=== PATIENT | male | born 1960 | race Caucasian/White ===

== ENCOUNTER 2016-09-22 08:35 | Emergency (ER) | payer OTHER ==
[2016-09-22 09:06] LABS: Hematocrit 40.4 % (42.0-52.0); Hemoglobin 13.7 gm/dL (13.5-18.0); Mean Cell Volume 103.9 fl (78-100); Mean Corpuscular Hemoglobin 35.2 pg (27-31); Mean Corpuscular Hgb Conc 33.9 g/dl (32-36); Mean Platelet Volume 10.7 fl (6.0-9.5); Neutrophil # 2.6 K/mm3 (1.3-6.0); Neutrophil % 54.8 % (42-75.0); Platelet Count 107 K/mm3 (150-450); Red Blood Count 3.89 M/mm3 (4.7-6.0); Red Cell Distribution Width 13.6 % (11.5-14.0); Urine Bilirubin Negative (NEGATIVE); Urine Blood Negative /ul (NEGATIVE); Urine Ketone Negative (NEGATIVE); Urine Nitrite Negative (NEGATIVE); Urine Protein Negative (NEGATIVE); Urine Specific Gravity >=1.030 SP.GR. (1.005-1.030); Urine Urobilinogen Normal (NORMAL); White Blood Count 4.8 K/mm3 (4.0-10.5)
[2016-09-22 09:11] LABS: Urine Appearance Clear; Urine Color Dark Yellow
[2016-09-22 09:14] LABS: Urine Bacteria 1+; Urine Mucus Few - 1+; Urine RBC TRACE /hpf (0-5); Urine WBC TRACE /hpf (0-5)
[2016-09-22 09:17] LABS: Anion Gap 9.5 mmol/L (6.8-13.8); BUN/Creatinine Ratio 20.5 (9.0-21.6); Bilirubin Direct 0.5 mg/dL (0.0-0.3); Bilirubin, Total 1.6 mg/dL (0.0-1.1); Bilirubin,Indirect 1.1 mg/dL (0.1-0.7); Calcium * 8.7 mg/dL (7.9-10.9); Carbon Dioxide 28.7 mmol/L (24-32.6); Estimated Creat Clear 115.3; Potassium 4.2 mmol/L (3.4-4.6); Total Protein 7.1 gm/dL (6.2-8.2)
[2016-09-22 09:35] VITALS: BP 154/88
[2016-09-22] MEDS ORDERED: KETOROLAC TROMETHAMINE 60 MG/2 ML VIAL IM ONE ×2 (09:39→09:44)
--- NOTE | 2016-09-22 09:47 | ERNOTE ---
Back Pain ER HPI Time Seen by Provider: 09/22/16 09:24 Source: patient Exam Limitations: no limitations Immunizations: IMMUNIZATION HX Immunizations Up to Date Yes History of Influenza Vaccine Yes Hx Pneumococcal Vaccination Yes Allergies/Adverse Reactions: Allergies No Known Allergies Allergy (Verified 09/22/16 08:49) Home Medications: HOME MEDICATIONS Acetaminophen [Tylenol] 500 mg PO Q6H PRN 09/22/16 [Last Taken Unknown] Cyclobenzaprine HCl [Flexeril] 10 mg PO TID PRN #30 tab 09/22/16 [Last Taken Unknown] Ibuprofen [Motrin] 800 mg PO TID PRN #60 tab 09/22/16 [Last Taken Unknown] Rifaximin [Xifaxan] 550 mg PO BID 09/22/16 [Last Taken Unknown] Narrative: Patient is here for back pain that started when he turned over on his cot this morning. The pain radiates to his left groin, is worse with movement and better when holding still. He denies any recent injury (is currently in detention). He has a remote history of back pain with disc problems in the past, no definite injury , no surgeries Date (Duration): 09/22/16 Time (Timing): 01:00 Timing: Reports: constant Quality/Severity: Reports: severe Location of pain: Reports: lower back Recent Injury?: Reports: no Modifying Factors - (Improves): Reports: other - holding still Modifying Factors - (Worsens): Reports: movement to left Associated Symptoms: Denies: fever/chills, sweating, constipation/incontinence, nausea/vomiting, problems urinating, lightheadedness, numbess/weakness in legs Review of Systems - Review of Systems Constitutional: Absent: recent illness, fever ENT: Absent: nasal drainage, sore throat Respiratory: Absent: shortness of breath, cough Cardiology: Absent: chest pain Gastrointestinal/Abdominal: Present: See HPI. Absent: nausea, vomiting Genitourinary: Present: See HPI. Absent: frequency Neurological: Absent: headache, weakness, numbness - Patient's Past Medical History Patient History - Medical: Alcohol Abuse, Liver Disease - liver failure and hepC on transplant list Patient History - Cardiac/Respiratory: No pertinent hx Patient History - Cancer: No Hx of Cancer Patient History - Surgical Procedures: Total Knee Replacement, T & A - Social History Living Situations: other Smoking Status: Never smoker Alcohol Use: other Physical Exam - Physical Exam General Appearance: Present: wd/wn, alert, mild distress Neck: Present: normal inspection Respiratory: Present: no respiratory distress, normal breath sounds, no accessory muscle use, lungs clear Cardiovascular/Chest: Present: regular rate, rhythm, no murmur Gastrointestinal/Abdominal: Present: nontender, nondistended, soft Back Exam: Present: normal inspection, no vertebral tenderness, muscle spasm - left lower back paraspinal Extremity Exam: Present: other - pain on minimal straight leg raise on the left Neurological Exam: Present: alert, oriented, normal mood/affect, no motor/ sensory deficits Skin Exam: Present: normal color, warm/dry ED Progress - Results and Orders Patient's Lab Results:: I have reviewed the patient's lab results. - Vital Signs Patient's Vital Signs:: I have reviewed the patient's vital signs. Vital Signs: Vital Signs 09/22/16 09/22/16 08:44 09:34 Temperature 36.2 C L Pulse Rate 90 92 Respiratory 16 16 Rate Blood Pressure 183/89 154/88 O2 Sat by Pulse 96 96 Oximetry - Progress/Reassessment Chief Complaint: Back Pain Departure Clinical Impression: Sciatic nerve pain Qualifiers: Laterality: left Qualified Code(s): M54.32 - Sciatica, left side - Departure Disposition: Senior Living Condition: Good Instructions: Sciatica, [id number] Additional Instructions: follow up with the doctor available to you do NOT take any tylenol Prescriptions: Cyclobenzaprine HCl [Flexeril] 10 mg PO TID PRN #30 tab PRN Reason: MUSCLE SPASMS Ibuprofen [Motrin] 800 mg PO TID PRN #60 tab PRN Reason: Pain
== END 2016-09-22 09:56 ==
LOC: ER 08:35
DX: M54.32 Sciatica, left side (principal)